=== PATIENT | male | born 1975 | race Caucasian/White ===

== ENCOUNTER 2017-07-29 19:38 | Emergency (ER) | payer OTHER ==
[~2017-07-29] VITALS: Ht 172.7 cm; Wt 80.7 kg
[2017-07-29 19:49] VITALS: BP 126/77
--- NOTE | 2017-07-29 22:54 | NUR ---
PT TAKEN TO OF
--- NOTE | 2017-07-29 22:56 | NUR ---
42 Y/O M W/C/O PAIN TO BILATERAL ARMS AND LEGS X YRS. PT STATES HAS A HX OF NEUROPHATY X YEARS AND RUN OUT OF MEDS FOR PAIN. NO OTHER S/S OF DISTRESS OR PAIN NOTED AT THE [facility]. ER MADE AWARE.
--- NOTE | 2017-07-29 23:16 | NUR ---
Dr. Lopez evaluating patient
[2017-07-29] MEDS ORDERED: HYDROcodone/APAP 5/325 MG 1 TAB TAB PO ONE (23:30)
[2017-07-29 23:56] VITALS: BP 122/69
--- NOTE | 2017-07-29 23:56 | NUR ---
Patient discharged with v/s stable. Written and verbal after care instructions given and explained. Patient alert, oriented and verbalized understanding of instructions. Ambulatory with steady gait. All questions addressed prior to discharge. ID band removed. Patient advised to follow up with PMD OR RETURN TO ER IF CONDITION WORSENS. Rx of TRAMADOL given. Patient educated on indication of medication including possible reaction and side effects. Opportunity to ask questions provided and answered.
== END 2017-07-29 23:56 | disposition home or self-care (01) ==
LOC: MED 19:38
DX: G89.29 Other chronic pain (principal); G56.93 Unspecified mononeuropathy of bilateral upper limbs; G57.93 Unspecified mononeuropathy of bilateral lower limbs; E11.9 Type 2 diabetes mellitus without complications; F12.90 Cannabis use, unspecified, uncomplicated
CPT/HCPCS: 99283

== ENCOUNTER 2017-08-09 08:02 | Emergency (ER) | payer OTHER ==
[~2017-08-09] VITALS: Ht 172.7 cm; Wt 78.2 kg
--- NOTE | 2017-08-09 08:13 | NUR ---
PT TAKEN TO BED 2.
[2017-08-09 08:15] VITALS: BP 152/92
--- NOTE | 2017-08-09 08:15 | NUR ---
PATIENT PRESENTS TO ED WITH C/O BILAT HAND AND FOOT PAIN W/ NUMBNESS AND TINGLING SENSATION X 1 MONTH . PT STATES HE HAS NEUROPATHY.VOMITTING SINCE LAST NOC; SKIN IS PINK/WARM/DRY; AAOX4 WITH EVEN AND STEADY GAIT; LUNGS CLEAR BL; HR EVEN AND REGULAR; PT DENIES ANY FEVER, CP, SOB, OR COUGH AT THIS TIME; PATIENT STATES PAIN OF 10/10 AT THIS TIME;PATIENT POSITIONED FOR COMFORT; HOB ELEVATED; BEDRAILS UP X2; BED DOWN. ER MD MADE AWARE OF PT STATUS.
--- NOTE | 2017-08-09 08:15 | NUR ---
Patient being evaluated by Dr. Sutton at bedside.
[2017-08-09] MEDS ORDERED: HYDROmorphone 1 MG/ML AMP IM ONE (08:20)
[2017-08-09] MEDS ORDERED: HYDROmorphone PFS 2 MG/ML SYR ONE (08:30)
[2017-08-09 08:38] VITALS: BP 154/98
--- NOTE | 2017-08-09 08:38 | NUR ---
Patient discharged with v/s stable. Written and verbal after care instructions given and explained. Patient alert, oriented and verbalized understanding of instructions. Ambulatory with steady gait. All questions addressed prior to discharge. ID band removed. Patient advised to follow up with PMD. Rx of TARMADOL AND ZOFRAN given. Patient educated on indication of medication including possible reaction and side effects. Opportunity to ask questions provided and answered.
== END 2017-08-09 08:38 | disposition home or self-care (01) ==
LOC: MED 08:02
DX: E11.42 Type 2 diabetes mellitus with diabetic polyneuropathy (principal)
CPT/HCPCS: 82948; 96372; 99283; J1170

== ENCOUNTER 2017-09-14 07:08 | Emergency (ER) | payer OTHER ==
[~2017-09-14] VITALS: Ht 172.7 cm; Wt 79.1 kg
[2017-09-14 07:11] VITALS: BP 130/89
--- NOTE | 2017-09-14 07:16 | NUR ---
PT TAKEN TO BED 11
[2017-09-14] MEDS ORDERED: NACL 0.9% 1,000 ML IV ONE (07:17)
--- NOTE | 2017-09-14 07:18 | NUR ---
42M BIB FAMILY C/O BOTH LEGS & HANDS PAIN & VOMITING X 2 DAY. SKIN IS PINK/W ARM/DRY; AAOX4 WITH EVEN AND STEADY GAIT; LUNGS CLEAR BL; PT DENIES ANY FEVER, CP, SOB, OR COUGH AT THIS TIME; PATIENT STATES PAIN OF 8/10 AT THIS TIME; PATIENT POSITIONED FOR COMFORT; HOB ELEVATED; BEDRAILS UP X2; BED DOWN. ER MD MADE AWARE OF PT STATUS.
[2017-09-14] MEDS ORDERED: ONDANSETRON 4 MG/2 ML VIAL IVP ONE (07:20)
[2017-09-14 07:35] LABS: BASOPHILS # (AUTO) 0.2 K/uL (0.00-0.22); BASOPHILS % (AUTO) 1.8 % (0.0-2.0); EOSINOPHILS # (AUTO) 0.2 K/uL (0-0.4); EOSINOPHILS % (AUTO) 1.8 % (0.0-4.0); HEMATOCRIT 47.9 % (36-52); HEMOGLOBIN 15.8 g/dL (12.0-18.0); LYMPHOCYTES # (AUTO) 2.6 K/uL (2.0-11.5); LYMPHOCYTES % (AUTO) 24.8 % (20.5-51.1); MEAN CORPUSCULAR HEMOGLOBIN 29 pg (27-31); MEAN CORPUSCULAR HGB CONC 33 g/dL (33-37); MEAN CORPUSCULAR VOLUME 87 fL (80-94); MONOCYTES # (AUTO) 0.4 K/uL (0.8-1.0); MONOCYTES % (AUTO) 4.1 % (1.7-9.3); NEUTROPHILS % (AUTO) 67.5 % (42.2-75.2); PLATELET COUNT (AUTO) 307 K/uL (140-450); RED BLOOD CELL COUNT(AUTO) 5.49 MIL/uL (4.20-6.10); RED CELL DISTRIBUTION WIDTH 11.9 % (11.6-13.7); WHITE BLOOD COUNT (AUTO) 10.4 K/uL (4.8-10.8)
[2017-09-14] MEDS ORDERED: ONDANSETRON 4 MG/2 ML VIAL ONE (07:36)
[2017-09-14 07:55] LABS: ALBUMIN 4.1 g/dL (3.4-5.0); ANION GAP 8.5 (8-16); CREATININE 0.8 mg/dL (0.7-1.3); POTASSIUM 4.5 mmol/L (3.5-5.1); TOTAL BILIRUBIN 0.4 mg/dL (0.0-1.0)
--- NOTE | 2017-09-14 08:32 | NUR ---
FAMILY AT BEDSIDE. PAIN DECREASE TO 5/10 AT THIS TIME.
[2017-09-14 08:56] LABS: APPEARANCE,URINE HAZY (CLEAR); BILIRUBIN,URINE NEGATIVE (NEGATIVE); BLOOD, URINE NEGATIVE (NEGATIVE); COLOR,URINE YELLOW (YELLOW); LEUKOCYTE ESTERASE ,URINE NEGATIVE (NEGATIVE); NITRITE, URINE NEGATIVE (NEGATIVE); PH,URINE 6.5 (5.0-9.0); UGLUCOSE NEGATIVE (NEGATIVE)
[2017-09-14 09:07] VITALS: BP 141/89
--- NOTE | 2017-09-14 09:07 | NUR ---
Patient discharged with v/s stable. Written and verbal after care instructions given and explained. Patient alert, oriented and verbalized understanding of instructions. Ambulatory with steady gait. All questions addressed prior to discharge. ID band removed. Patient advised to follow up with PMD. Rx of EDIS & IVELISSE given. Patient educated on indication of medication including possible reaction and side effects. Opportunity to ask questions provided and answered.
[2017-09-14 09:13] LABS: RBC,URINE NONE SEEN /HPF (0-5); WBC,URINE NONE SEEN /HPF (0-5)
== END 2017-09-14 09:07 | disposition home or self-care (01) ==
LOC: MED 07:08
DX: R11.2 Nausea with vomiting, unspecified (principal); R10.9 Unspecified abdominal pain; E11.9 Type 2 diabetes mellitus without complications
CPT/HCPCS: 36415; 80053; 81001; 82948; 83690; 85025; 96361; 96374; 99284; J2405; J7030